=== PATIENT | female | born 1955 | race Caucasian/White ===

== ENCOUNTER → 2016-07-03 | Outpatient (CLI) | payer OTHER ==
[~2016-07-03] VITALS: Ht 162.6 cm; Wt 103.7 kg
[~2016-07-03] MED LIST: ADVIN25/60 INH; ALBU1AER9 INH; AMLO5TAB2 PO; CETI10TA84 PO; CHOL100010 PO; HYDR25TA4 PO; LEVO112T4 PO; LISI-725 PO; NAPR-1169 PO; PRLSR20 PO; ROPI3TAB2 PO; SERT1TAB68 PO
[2016-07-03 15:17] VITALS: BP 129/66; PULSE 93; Ht 162.6 cm; Wt 103.7 kg
== END | disposition home or self-care (01) ==
LOC: C.NEUR 15:06
PROVIDERS: ATTEND Internal Medicine Pulmonary Disease
DX: G47.33 Obstructive sleep apnea (adult) (pediatric) (principal); J45.909 Unspecified asthma, uncomplicated

== ENCOUNTER → 2017-06-17 | Outpatient (CLI) | payer OTHER ==
--- NOTE | 2017-06-18 14:35 | MAMMOGRAPHY REPORT ---
BILATERAL DIGITAL SCREENING MAMMOGRAM TOMOSYNTHESIS WITH CAD: 06/17/2017 CLINICAL HISTORY: Routine screening. TECHNIQUE: Breast tomosynthesis in addition to standard 2D mammography was performed. Additional ti led 2-D CC and MLO views were obtained to include all breast tissue. Current study was also evaluate d with a Computer Aided Detection (CAD) system. COMPARISON: Comparison is made to exams dated: 06/16/2016 mammogram, 06/13/2015 mammogram, 4 mammogram, 06/10/2013 mammogram, 06/09/2012 mammogram, and 03/27/2011 mammogram - [facility]. BREAST COMPOSITION: The tissue of both breasts is heterogeneously dense, which may obscure small mas ses. FINDINGS: There is a stable intramammary lymph node in the right upper outer quadrant. No suspicious mass, architectural distortion or cluster of microcalcifications is seen. IMPRESSION: ACR BI-RADS CATEGORY 1: NEGATIVE There is no mammographic evidence of malignancy. A 1 year screening mammogram is recommended. The pa tient will receive written notification of the results. Approximately 10% of breast cancers are not detected with mammography. A negative mammographic report should not delay biopsy if a clinically suggestive mass is present. Ashley Cadena M.D. ay/:06/17/2017 15:06:54 Call Center Nurse: Giles TOURE(R)(M), [facility] letter sent: Normal 1/2 BI-RADS Code: ACR BI-RADS Category 1: Negative
== END | disposition home or self-care (01) ==
LOC: C.MAMM 13:49
PROVIDERS: ATTEND Obstetrics & Gynecology
DX: Z12.31 Encounter for screening mammogram for malignant neoplasm of breast (principal)

== ENCOUNTER → 2017-07-21 | Outpatient (CLI) | payer BC, OTHER ==
--- NOTE | 2017-07-21 13:21 | DIAGNOSTIC IMAGING REPORT ---
RIGHT FIFTH FINGER 3 VIEWS CLINICAL HISTORY: Right fifth finger pain. Injured several weeks ago. FINDINGS: 3 views of the right fifth finger are correlated with radiograph of the right hand dated 01/19/2015. The skeletal structures are osteopenic. There is a punctate ossific density seen posterior to the head of the second middle phalanx. This may represent a tiny avulsion injury. No additional findings are concerning for acute fracture. The fifth metacarpophalangeal and interphalangeal joints appear preserved. Mild soft tissue swelling is suggested in the fifth finger. IMPRESSION: 1. A punctate ossific density is seen in the soft tissues posterior to the head of the second middle phalanx. A tiny avulsion injury is not excluded. 2. No additional findings are concerning for acute fracture in the right fifth finger. Electronically signed by: Han Gregory M.D. 07/21/2017 1:19 PM Dictated Date/Time: 07/21/2017 1:17 PM
== END | disposition home or self-care (01) ==
LOC: C.RDSM 13:08
PROVIDERS: ATTEND Internal Medicine
DX: M79.646 Pain in unspecified finger(s) (principal)

== ENCOUNTER → 2017-09-08 | Outpatient (CLI) | payer BC ==
[~2017-09-08] MED LIST changes: +GADAVIST IV PRN
--- NOTE | 2017-09-08 16:47 | DIAGNOSTIC IMAGING REPORT ---
LEFT ANKLE MRI WITH AND WITHOUT INTRAVENOUS CONTRAST HISTORY: LT ANKLE PAIN TECHNIQUE: Multiplanar multisequence MRI of the left ankle was performed both before and after the intravenous administration of contrast COMPARISON STUDY: Left ankle 01/04/2010. FINDINGS: Skin marker along the posterior lateral aspect of the ankle. Deep to the skin marker there is mild subcutaneous edema. No soft tissue masses. No acute fracture or dislocation within the left ankle. Mild cartilage space narrowing at the tibiotalar and subtalar joints. There is a large plantar heel spur. Mild edema within and surrounding the heel spur with mild thickening and edema in the proximal plantar fascia. This is consistent with a plantar fasciitis. The Achilles tendon, flexor tendons, and extensor tendons are intact. Trace fluid surrounding the peroneal tendons consistent with a mild tenosynovitis. Well-corticated ossific density at the distal tip of the fibula which measure 7 mm. This is consistent with an old avulsion injury. 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 The medial stabilizing ligaments are intact. There is a primarily fat-containing 3.3 cm lesion within the anterior calcaneus. This contains a small focus of cystic change and mild edema. No surrounding edema or abnormal periosteal reaction. Therefore, this is consistent with an intraosseous lipoma. IMPRESSION: 1. Plantar fasciitis. 2. Mild tenosynovitis of the peroneal tendons. 3. A 3.3 cm primarily fat-containing lesion within the anterior calcaneus. This contains a small focus of cystic change and mild edema. However, this has an overall benign appearance and is consistent with an intraosseous lipoma. This is also stable compared to a 2009 examination. Electronically signed by: Sami Latham M.D. 09/08/2017 4:46 PM Dictated Date/Time: 09/08/2017 4:34 PM
== END | disposition home or self-care (01) ==
LOC: C.MRI 13:51
PROVIDERS: ATTEND Podiatrist Foot & Ankle Surgery
DX: M76.892 Other specified enthesopathies of left lower limb, excluding foot (principal)

== ENCOUNTER → 2017-09-29 | Outpatient (CLI) | payer BC ==
[~2017-09-29] MED LIST changes: -GADAVIST IV PRN
--- NOTE | 2017-09-29 18:22 | DIAGNOSTIC IMAGING REPORT ---
CHEST 2 VIEWS ROUTINE HISTORY: PRE OP COMPARISON: None. FINDINGS: A few small linear densities at the left lung base which favor scarring or atelectasis. The lungs are otherwise clear. The heart is normal in size. No pleural effusions. No pneumothorax. IMPRESSION: No acute process. Electronically signed by: Sami Latham M.D. 09/29/2017 6:21 PM Dictated Date/Time: 09/29/2017 6:19 PM
== END | disposition home or self-care (01) ==
LOC: C.RAD 17:15
PROVIDERS: ATTEND Podiatrist Foot & Ankle Surgery
DX: Z01.811 Encounter for preprocedural respiratory examination (principal)

== ENCOUNTER → 2017-11-10 | Day surgery (SDC) | payer BC ==
[2017-10-23 13:32] VITALS: BMI 38.0
--- NOTE | 2017-11-09 15:06 | HISTORY & PHYSICAL EXAMINATION ---
DATE OF ADMISSION: PRE-OP HISTORY AND PHYSICAL HISTORY OF PRESENT ILLNESS: A 61-year-old female presents today for preoperative evaluation of ankle pain, requesting surgical intervention. Condition is located on the anterior aspect of right ankle and over the left mid foot. She describes pain as intermittent. She has a lot of throbbing pain. Severity of the condition is graded as an 8 on a 10 point scale on the left, began 2 years ago. Patient denies any associated signs or risks. She indicates there are no modifying factors. Patient has past treatments consisting of injections, MRI, radiographs, insoles and brace with minimal relief. Due to the nature and severity of the discomfort, she is requesting surgical intervention. PAST SURGICAL HISTORY: Hysterectomy, tonsillectomy, venous stripping. PAST MEDICAL HISTORY: Arthritis, asthma, depression, anxiety disorder. MEDICATIONS: Zoloft, ReQuip, ____, hydrochlorothiazide, levothyroxine, aspirin, ____, lisinopril, thyroid, Clinoril. ALLERGIES: THE PATIENT ADMITS TO ALLERGIES TO AMOXICILLIN, PENICILLINS AND CODEINE. FAMILY HISTORY: Cancer and diabetes. SOCIAL HISTORY: Patient admits to alcohol use, drinking described as social. REVIEW OF SYSTEMS: Unremarkable except chief complaint. PHYSICAL EXAMINATION: CONSTITUTIONAL: The patient appears well developed and nourished with good attention to body grooming and habitus. HEAD AND FACE: Head is normocephalic, atraumatic. No gross head, face or neck masses. EYES: Conjunctival and pupillary reaction to light and accommodation are normal. EARS, NOSE, MOUTH AND THROAT: Unremarkable. NECK: Supple. Trachea is midline without any adenopathy or crepitance palpable. CARDIOVASCULAR: Normal S1, S2, without murmur, gallops, rubs or clicks noted. Cardiovascular exam is normal. RESPIRATORY: Chest is symmetric. No scars are visible. No port or pacemaker. LUNGS: Clear to auscultation bilaterally and equal. GASTROINTESTINAL: Abdominal organs, bladder and kidneys show no abnormalities, masses, tenderness or rigidity. LYMPHATIC: No popliteal, inguinal or supraclavicular lymphadenopathy noted. EXTREMITIES: Lower extremity exam DP palpable, PT palpable. DERMATOLOGY: No skin rash, subcutaneous nodules, lesions or ulcers observed. NEUROLOGICAL: Touch, pin, vibratory and proprioception are normal. Deep tendon reflexes normal. MUSCULOSKELETAL: Muscle tone is normal. Muscle strength 5/5 all groups tested. Anterior aspect of the left ankle shows pain ____ exam. Dorsum aspect of the mid foot shows evidence of capsulitis, swelling and pain. Exostosis is noted to the left mid foot. IMPRESSION: Ankle joint capsulitis left, degenerative joint disease, left ankle. Mid tarsal joint capsulitis left, difficulty walking. Pain, lower extremity and leg. 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 PLAN: I discussed the most common mechanical etiology discomfort. Conservative treatment consisted of rest, ice, analgesics, nonsteroidal anti-inflammatory drugs, physical therapy, steroid injections and orthotics. Due to the nature and severity of the discomfort, she is requesting surgical intervention. SURGICAL PROCEDURE TO BE PERFORMED: 1. Surgical arthroscopy with extensive debridement, possible open arthrotomy of the left ankle. This will be performed under general anesthesia as an outpatient hospital. Procedure, risks and complications were fully reviewed with the patient. Consent form, foot diagram illustration reviewed in all their entirety. All the patient's questions were answered, complications discussed in detail with the patient including pain, infection, swelling that may not be excessive, pins and needles feeling, numbness, metatarsalgia, excessive bleeding, delay or nonhealing of bone, delay or nonhealing of skin, enlarged scar, failure of the procedure, reoccurrence or worsening condition which may not require further surgery, adverse reaction to anesthesia, allergic reaction to suture or other implant material. The patient will be required to be in a surgery shoe for minimum of 1-2 weeks, not return to sneaker for 2-4 weeks depending on the postop edema. The patient is aware that this is an elective type of procedure and I recommend a second opinion. The patient stated they understood. Consent form was signed with a copy of the foot diagram issued to the patient. Verbal and written postop instructions were given. The patient will be started on CPM machine if covered by insurance. If not, she will perform range of motion immediately postoperatively. She will return to the office for postop check or sooner if necessary. Instructed to keep dressing clean, dry, intact until seen at the office. At the time of the preop appointment, prescriptions for erythromycin and Percocet were dispensed.
[~2017-11-10] VITALS: Ht 162.6 cm; Wt 102.3 kg
[~2017-11-10] MED LIST changes: -AMLO5TAB2 PO; +ASPI81TA28 PO; +ATROPINE SULFATE 0.1 MG/ML 5ML SYR IV PRN; +BLAC540C3 PO; +BUPIVACAINE 0.5 % 5 MG/1 ML MPF 30ML VIAL ONE; -CETI10TA84 PO; -CHOL100010 PO; +DEXAMETHASONE SOD INJ 4 MG/ML VIAL ONE; +EpHEDrine SULFATE INJ 50 MG/ML AMP IV PRN; +FENTANYL CITRATE INJ 50 MCG/1 ML 2 ML VIAL ONE; +HYDROmorphone INJ 0.5 MG/0.5 ML SYR IV PRN; +LACTATED RINGER'S 1000ML 1,000 ML IV SCH; +LIDOCAINE HCL 2% 2 ML VIAL (20MG/ML) ONE; +LIDOCAINE/EPINEPHRINE 1% 20 ML VIAL ONE; +MIDAZOLAM HCL 1 MG/ML 2ML VIAL ONE; -NAPR-1169 PO; +ONDANSETRON INJ 2 MG/ML 2 ML VIAL IV PRN; +ONDANSETRON INJ 2 MG/ML 2 ML VIAL ONE; +PHENYLEPHRINE 100MCG/ML 5ML SYR IV PRN; +PHENYLEPHRINE 100MCG/ML 5ML SYR ONE; +PROPOFOL IV EMULSION 10 MG/ML 20 ML VIAL ONE; +ROPIVACAINE 0.5% 5 MG/ML 30 ML VIAL ONE; +SODIUM CHLORIDE 0.9% 1000ML 1,000 ML IV SCH; +SULI200T4 PO; +VANCOMYCIN 1GM/270ML NSS IV SCH
[2017-11-10 05:30] VITALS: BP 158/86; PULSE 95; TEMP 36.8; O2SAT 95; Ht 162.6 cm; Wt 102.3 kg
[2017-11-10 05:36] LABS: HEMATOCRIT 38.3 % (37-47); HEMOGLOBIN 13.6 g/dL (12.0-16.0); MEAN CELL VOLUME 87.8 fL (80-100); MEAN CORPUSCULAR HEMOGLOBIN 31.2 pg (25-34); MEAN PLATELET VOLUME 8.2 fL (7.4-10.4); PLATELET COUNT 258 K/uL (130-400); RED CELL DISTRIBUTION WIDTH CV 13.1 % (11.5-14.5); RED CELL DISTRIBUTION WIDTH SD 42.5 fL (36.4-46.3); WHITE BLOOD COUNT 5.18 K/uL (4.8-10.8)
[2017-11-10 05:39] LABS: MEAN CORPUSCULAR HGB CONC 35.5 g/dl (32-36)
--- NOTE | 2017-11-10 07:00 | History & Physical Bridge Note ---
H&P Re-Evaluation Bridge Note: I have examined the patient, reviewed the History & Physical and in the interval since the performance of the History & Physical I have noted the following changes of clinical significance: No changes noted
--- NOTE | 2017-11-10 07:03 | Discharge Instructions ---
Discharge Instructions Date of Service November 10, 2017. Admission Reason for Admission: Left Ankle Joint Capsulitis, Degenerative Joint Di Discharge Discharge Diagnosis / Problem: same as diagnosis Discharge Goals Goal(s): Decrease discomfort Activity Recommendations Activity Limitations: as noted below Medications: * Resume previous medications unless instructed by your surgeon. * Take your medications as prescribed. Call our office ([phone]) at any time, if you experience severe pain that does not subside shortly after taking your pain medication. Activity: * You may walk on your operated foot/ankle using the surgical shoe or cast/splint. Do not put any weight on your operated foot/ankle without wearing the surgical shoe or cast sandal.. Special Care: * Keep your bandage clean and dry. Do not remove your bandage unless otherwise instructed. A small amount of blood may appear on the bandage over the surgical site. Call our office ([phone]) if you bandage becomes blood-soaked or wet. * Elevate your operated foot/ankle on pillows, above the level of your heart, as often as possible during the first 2-3 days following surgery. Keep your knee flexed slightly with a pillow under your knee when you elevate your foot/ankle. * Apply a ice bag to your foot/ankle over the operative site for 20-30 minutes out of each hour while you are awake. Do not allow the ice bag to directly contact bare skin. * Avoid bumping or handling any pins visible in your toes. If any pin feels or appears loose, call the office ([phone]). * Take your oral temperature in the morning and at bedtime. Call our office ([phone]) if your temperature rises above 101 degrees Fahrenheit. Call your surgeon's office at ([phone]) for any problems or concerns such as excessive bleeding and/or pain unrelieved by your prescribed pain medications. If you have any questions, please do not hesitate to ask them. Avoid all tobacco products. If you need help to stop smoking, call [place]'s FREE QUITLINE at . This is a free call. Follow-up: Follow-up with Dr. Fu . Current Hospital Diet Patient's current hospital diet: Discharge Diet Recommended Diet: Regular Diet Pending Studies Studies pending at discharge: no Medical Emergencies . Who to Call and When: Medical Emergencies: If at any time you feel your situation is an emergency, please call 911 immediately. . Non-Emergent Contact Non-Emergency issues call your: Primary Care Provider . "Provider Documentation" section prepared by Diane Ayers. .
--- NOTE | 2017-11-10 09:02 | [facility] Post Operative Brief Note ---
Immediate Operative Summary Operative Date November 10, 2017. Pre-Operative Diagnosis Left ankle joint capsulitis, degenerative joint disease left ankle. Left mid tarsal joint capsulitis, difficulty walking Post-Operative Diagnosis Left ankle joint capsulitis, degenerative joint disease left ankle. Left mid tarsal joint capsulitis, difficulty walking Procedure(s) Performed Surgical arthroscopy left Ankle , Extensive Dedridement and Talar Lesion Repair. Surgeon Ramon RussellPLuz. Medical Technologist Microbiology Surgeon(s) None Estimated Blood Loss 0ml Findings Consistent with Post-Op Diagnosis Specimens None per surgeon Anesthesia Type General
--- NOTE | 2017-11-10 09:59 | OPERATIVE REPORT ---
DATE OF OPERATION: 11/10/2017 SURGEON: Diane Fu DPM PREOPERATIVE DIAGNOSES: 1. Distal fibular old avulsion injury per MRI. 2. Degenerative joint disease of left ankle. 3. Adhesive and traumatic capsulitis of the left ankle. POSTOPERATIVE DIAGNOSES: 1. Distal fibular old avulsion injury per MRI. 2. Degenerative joint disease of left ankle. 3. 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 PROCEDURES: Surgical arthroscopy with extensive debridement and repair of osteochondritis dissecans and osteochondral defect of the talus. ANESTHESIA: General. HEMOSTASIS: Pneumatic thigh tourniquet in place, however, not inflated. ESTIMATED BLOOD LOSS: Minimal. MATERIALS: 3-0 Vicryl, 4-0 nylon. INJECTABLES: Preop intraarticular of 1% lidocaine with 1:1000 epinephrine, a total of 20 mL, and postoperative block of 0.5% Marcaine plain, total of 30 mL, and intraarticular postoperative 2 mL of dexamethasone sodium phosphate 4 mg per mL. FINDINGS: A large amount of hypertrophic synovium, osteochondritis dissecans with talar dome lesion secondary to tibial impingement anteriorly. COMPLICATIONS: None. The patient tolerated the procedure and anesthesia well without complications, transferred to recovery room with vital signs stable and neurovascular status intact. DESCRIPTION OF PROCEDURE: The patient was brought to the OR and placed on the OR table in supine position. Upon completion of general anesthesia, a well-padded thigh tourniquet was applied to the left lower extremity. The extremity was scrubbed, prepped and draped in the usual aseptic fashion. Attention was directed to the medial aspect of the left ankle joint. The position of the extremity was placed in a knee osorio and also the noninvasive Betsy distractor was used. Prior to the incision, the joint was inflated with 20 mL of 1% lidocaine with 1:1000 epinephrine. Just medial to the tibias anterior tendon, inferior to the joint line, a small stab incision was made after carefully drawn out. Also, a lateral stab incision was made using a 15 blade just lateral to the extensor tendons and peroneus tertius just inferior to the joint line. The deep structures were using a small hemostat. Using a blunt trocar and cannula, the anterior medial and anterior lateral portals were created. The camera was placed in the lateral portal and a 3-0 Saber was placed in the medial portal. This was used to abrade a large amount of hypertrophic synovium over the lateral aspect of the joint. The cartilage surface was examined both inferior and superior aspects of the joint. There was a cartilage defect noted to anterior talus with delamination of the cartilage surface. This appeared to be impinging where the tibia was impinging on the anterior aspect of the talus. There did not appear to be excessive lip on this area intraoperatively and was right at the full and extension on the talus. This was brought back to stable margins. There was no subchondral bone, but rather delamination and thinning of the cartilage over this area. The tibial surface was intact. There did appear to be no lesion. Minimal chondromalacia was noted. At this time, the camera and the shaver were switched. The camera was placed in the lateral portal and the shaver was placed in the medial portal. Adhesive capsulitis and hypertrophic synovium were also abraded with a chisel to due to a large amount of hypertrophic synovium. The 3-0 Saber shaver was used for the remaining portion of hypertrophic synovium. The wound was copiously lavaged and the camera and the shaver were removed. The skin margins were reapproximated in a box stitch-type manner using 3-0 Vicryl superficial. The skin was closed in a retention suture-type fashion using 3-0 nylon. An ankle block of 20 mL 0.5% Marcaine plain was placed around the ankle and an intraarticular injection of 2 mL of dexamethasone sodium phosphate was instilled within the joint. A dry sterile compressive dressing consisting of Adaptic, Betadine, Webril, and ROSALVA were applied. It should be noted that the well-padded tourniquet was in place, however, not inflated throughout the procedure. The patient was transported to the recovery room with vital signs stable and neurovascular status intact. Long-term prognosis is guarded. The lesion was not down to the subchondral bone, however, there was significant delamination where the tibia was hitting the anterior aspect of the joint. I attest to the content of the Intraoperative Record and any orders documented therein. Any exception s are noted below.
[2017-11-10 10:02] VITALS: BP 146/76; PULSE 89; TEMP 36.8; O2SAT 92
--- NOTE | 2017-11-10 10:03 | Anesthesiology Progress Note ---
Anesthesia Post Op Note Date & Time November 10, 2017 at 10:02 Vital Signs Pain Intensity: 0 Vital Signs Past 12 Hours Date Time Temp Pulse Resp B/P (MAP) Pulse Ox O2 Delivery O2 Flow Rate FiO2 11/10/17 09:55 84 24 140/85 93 Room Air 11/10/17 09:45 36.6 88 17 135/81 92 Room Air 11/10/17 09:35 89 14 141/73 92 Room Air 11/10/17 09:25 90 18 141/85 90 Room Air 11/10/17 09:15 82 12 138/85 97 Oxymask 10 11/10/17 09:06 36.6 94 15 154/77 97 Oxymask 10 11/10/17 05:30 36.8 95 20 158/86 (110) 95 Room Air Notes Mental Status: alert / awake / arousable, participated in evaluation Pt Amnestic to Procedure: Yes Nausea / Vomiting: adequately controlled Pain: adequately controlled Airway Patency, RR, SpO2: stable & adequate BP & HR: stable & adequate Hydration State: stable & adequate Anesthetic Complications: no major complications apparent
[2017-11-10 10:32] VITALS: BP 173/76; PULSE 80; TEMP 36.7; O2SAT 93
== END | disposition home or self-care (01) ==
LOC: C.ACU 04:58
PROVIDERS: ATTEND Podiatrist Foot & Ankle Surgery
DX: M93.272 Osteochondritis dissecans, left ankle and joints of left foot (principal); M19.072 Primary osteoarthritis, left ankle and foot; M77.9 Enthesopathy, unspecified; J44.9 Chronic obstructive pulmonary disease, unspecified; K21.9 Gastro-esophageal reflux disease without esophagitis; I10 Essential (primary) hypertension; E03.9 Hypothyroidism, unspecified; F32.9 Major depressive disorder, single episode, unspecified; E66.9 Obesity, unspecified; Z68.38 Body mass index [BMI] 38.0-38.9, adult; Z88.0 Allergy status to penicillin; Z88.5 Allergy status to narcotic agent; Z90.710 Acquired absence of both cervix and uterus; Z83.3 Family history of diabetes mellitus

== ENCOUNTER 2024-05-03 07:55 | Observation (INO) ==
--- NOTE | 2024-03-21 12:59 | PAT Medication Instructions ---
Medication Instructions Date of Service March 21, 2024 Home Medications aspirin 81 mg tablet,delayed release (Adult Low Dose Aspirin) 81 mg PO QAM cetirizine 10 mg tablet (Zyrtec) 10 mg PO DAILY PRN levothyroxine 112 mcg capsule 112 mcg PO QAM lisinopril 10 mg tablet 20 mg PO QAM multivitamin (Multiple Vitamins tablet) 1 tab PO QAM omeprazole 20 mg capsule,delayed release 20 mg PO QAM sertraline 100 mg tablet (Zoloft) 100 mg PO QAM hydrochlorothiazide 25 mg tablet 25 mg PO QAM ASK your prescriber and surgeon aspirin 81 mg tablet,delayed release (Adult Low Dose Aspirin) 81 mg PO QAM DO NOT take the morning of surgery cetirizine 10 mg tablet (Zyrtec) 10 mg PO DAILY PRN lisinopril 10 mg tablet 20 mg PO QAM multivitamin (Multiple Vitamins tablet) 1 tab PO QAM hydrochlorothiazide 25 mg tablet 25 mg PO QAM Take morning of surgery With a small sip of water, OTHERWISE NOTHING TO EAT OR DRINK AFTER MIDNIGHT: levothyroxine 112 mcg capsule 112 mcg PO QAM omeprazole 20 mg capsule,delayed release 20 mg PO QAM sertraline 100 mg tablet (Zoloft) 100 mg PO QAM Other Notes If you have any questions please call us at [phone] or [phone] or [phone] or [phone]
--- NOTE | 2024-03-28 12:06 | Anesthesiology Consultation ---
Date of Service March 28, 2024 Assessment & Plan (1) Encounter for pre-operative examination: - patient unable to void at PAT office visit and plans to return to [facility] with completed UA specimen. - Outpatient joint assessment: Patient is currently scheduled for inpatient pathway. If re-evaluated and patient/surgeon requests outpatient pathway, patient is/is not acceptable candidate for outpatient joint program from anesthesia standpoint pending surgeon's office assessment of pt motivation/support/completion of same day joint program preop requirements. Chart Review Chart Review: Pending: Refer to Additional Notes / Consult section and Patient seen in Pre Admission Testing Teaching & Discussion Pre-Anesthesia Teaching/Discussion Notes: Instructed NPO after midnight before surgery, except medications with 15 cc of water. Medication instructions provided according to the [facility] guidelines. History Surgery Operation Date: 05/03/24 07:00 Proposed Procedures p Left Total Shoulder Arthroplasty, - Jeff Breana Miller MD s Versus Reverse - Jeff Breana Miller MD Height/Weight Height: 5 ft 3.5 in Weight: 111.6 kg Allergies Allergy/AdvReac Type Severity Reaction Status Date / Time amoxicillin Allergy Intermediate Rash Verified 04/15/23 11:04 Cephalosporins Allergy Unknown CEFZIL-"SIC Verified 04/15/23 11:04 K" Penicillins Allergy Unknown AMOX. Verified 04/15/23 11:04 HIVES codeine AdvReac Intermediate N/V Verified 04/15/23 11:04 DEHYDRATION Medications Home Medications Medication Instructions Recorded Confirmed Last Taken aspirin 81 mg tablet,delayed 81 mg PO QAM 07/06/19 03/18/24 11/07/21 release (Adult Low Dose Aspirin) cetirizine 10 mg tablet (Zyrtec) 10 mg PO DAILY PRN Allergy Symptoms 07/06/19 03/18/24 11/07/21 levothyroxine 112 mcg capsule 112 mcg PO QAM 07/06/19 03/18/24 11/08/21 lisinopril 10 mg tablet 20 mg PO QAM 07/06/19 03/18/24 11/08/21 multivitamin (Multiple Vitamins 1 tab PO QAM 07/06/19 03/18/24 11/07/21 tablet) omeprazole 20 mg capsule,delayed 20 mg PO QAM 07/06/19 03/18/24 11/07/21 release sertraline 100 mg tablet (Zoloft) 100 mg PO QAM 07/06/19 03/18/24 11/07/21 hydrochlorothiazide 25 mg tablet 25 mg PO QAM 10/28/21 03/18/24 11/07/21 Past Medical History Medical History (Updated 03/28/24 @ 12:22 by Promise Madden PA-C) Acid reflux controlled, stable per pt Depression History of anxiety History of COVID-19 07/05/21; headache, poor appetite. resolved History of gestational diabetes History of uterine leiomyoma History of venous thrombosis right leg mmjb-pjkiio-qqetjprulga-denies being advised to start anticoagulation Hypertension controlled, stable per pt Hypothyroidism Morbid obesity Osteoarthritis Sleep apnea CPAP-compliant Patient denies h/o stroke, seizures, heart attack, heart failure, DM, or blood transfusions. Exercise / Class Metabolic Activity II 4-5 Yardwork/Stairs/Walk up hill (denies chest discomfort or shortness of breath with one flight of stairs) Past Family History Family History Other Cancer No family history of adverse response to anesthesia No significant family history Denies family history of Breast cancer Past Surgical History Surgical History (Updated 03/28/24 @ 12:23 by Promise Madden PA-C) History of carpal tunnel release of both wrists History of colonoscopy History of ligation of vein bilat History of tonsillectomy and adenoidectomy History of total abdominal hysterectomy Past Anesthesia History No Hx of Anesthesia Complications and No Family Hx of Anesthesia Complications History of PONV No Hx of PONV and No Hx of Motion Sickness Social History Smoking Status: Never smoker Do You Dip or Chew Tobacco: No Hx Alcohol Use: Yes Alcohol type: wine alcohol intake frequency: holidays/special occasions only Hx Substance Use: No substance use type: does not use Review of Systems Patient denies chest pain, shortness of breath, dyspnea on exertion, fever, chills, cough, wheezing, or palpitations. Physical Exam Vital Signs Vitals BP 121/82 P 77 TEMP 98.2 SP02 97% on RA RESP 18 Physical Patient resting comfortably in chair in no acute distress, alert and oriented, responding appropriately throughout visit Full cervical extension range of motion without pain TMD 3.5 finger breadths Mallampati Score 3 Dentition: intact, denies chipped or loose teeth, caps/crowns, implants or bridges Lungs: normal respiratory effort. Good air movement, clear throughout to auscultation, no adventitious breath sounds Cardiac: regular rate and rhythm, no murmurs noted Carotid arteries: negative bruit bilat Lab Results Anesthesia Preop Results Results Anesthesia Widget: WBC 4.96 K/ul (4.8-10.8) 03/28/24 Hgb 12.6 g/dl (12.0-16.0) 03/28/24 Hct 37.5 % (37.0-47.0) 03/28/24 Plt 236 K/uL (130-400) 03/28/24 Na 135 mmol/L (136-145) L 03/28/24 K 3.3 mmol/L (3.5-5.1) L 03/28/24 Cl 98 mmol/L (98-107) 03/28/24 CO2 28 mmol/L (21-32) 03/28/24 BUN 11 mg/dl (6-23) 03/28/24 Creat 0.64 mg/dl (0.6-1.2) 03/28/24 Glucose Level 86 mg/dl (70-99(Fasting)) 03/28/24 PT 10.3 Seconds (9.0-12.0) 03/28/24 PTT 25 Seconds (21-31) 03/28/24 INR 0.9 (0.9-1.1) 03/28/24 Blood Type B Positive 03/28/24 Antibody Screen NEGATIVE 03/28/24 Testing Electrocardiogram Date: 03/28/24 NSR, rate 80 bpm Poor R wave progression, consider anterior MS vs lead placement vs LVH Chest X-Ray Date: 03/28/24 No acute chest disease.
[~2024-05-03 07:55] MED LIST changes: -ADVIN25/60 INH; -ALBU1AER9 INH; -ASPI81TA28 PO; -ATROPINE SULFATE 0.1 MG/ML 5ML SYR IV PRN; -BLAC540C3 PO; -BUPIVACAINE 0.5 % 5 MG/1 ML MPF 30ML VIAL ONE; +BUPIVACAINE 0.5 % 5 MG/1 ML PF 10ML VIAL ONE; -DEXAMETHASONE SOD INJ 4 MG/ML VIAL ONE; -EpHEDrine SULFATE INJ 50 MG/ML AMP IV PRN; -FENTANYL CITRATE INJ 50 MCG/1 ML 2 ML VIAL ONE; -HYDR25TA4 PO; -HYDROmorphone INJ 0.5 MG/0.5 ML SYR IV PRN; -LACTATED RINGER'S 1000ML 1,000 ML IV SCH; -LEVO112T4 PO; -LIDOCAINE HCL 2% 2 ML VIAL (20MG/ML) ONE; -LIDOCAINE/EPINEPHRINE 1% 20 ML VIAL ONE; -LISI-725 PO; -ONDANSETRON INJ 2 MG/ML 2 ML VIAL IV PRN; -PHENYLEPHRINE 100MCG/ML 5ML SYR IV PRN; -PHENYLEPHRINE 100MCG/ML 5ML SYR ONE; -PRLSR20 PO; +PROPOFOL IV EMULSION 10 MG/ML 20 ML VIAL IV ONE; -PROPOFOL IV EMULSION 10 MG/ML 20 ML VIAL ONE; +ROCURONIUM BROMIDE 10 MG/ML 5 ML VIAL IV ONE; -ROPI3TAB2 PO; -ROPIVACAINE 0.5% 5 MG/ML 30 ML VIAL ONE; -SERT1TAB68 PO; -SODIUM CHLORIDE 0.9% 1000ML 1,000 ML IV SCH; +SUGAMMADEX SODIUM 200 MG/2 ML VIAL IV ONE; -SULI200T4 PO; -VANCOMYCIN 1GM/270ML NSS IV SCH; +fentaNYL citrate PF 100 MCG/2 ML VIAL ONE
[2024-05-03] MEDS: ACETAMINOPHEN 500 MG TAB PO SCH (09:00)
[2024-05-03] MEDS: LR 15ML/HR IV SCH (09:01)
[2024-05-03] MEDS: LR 60ML/HR IV SCH (09:01)
[2024-05-03] MEDS: Scopolamine 1 MG TDSY TD SCH (09:01)
[2024-05-03] MEDS: CeleBREX 200 MG CAP PO SCH (09:01)
[2024-05-03] MEDS ORDERED: ONDANSETRON INJ 2 MG/ML 2 ML VIAL IV PRN ×2 (09:04→14:49)
[2024-05-03] MEDS ORDERED: ePHEDrine sulfate 50 MG/ML AMP IV PRN (09:04)
[2024-05-03] MEDS ORDERED: fentaNYL citrate PF 100 MCG/2 ML VIAL IV PRN (09:04)
[2024-05-03] MEDS ORDERED: HYDROmorphone INJ 1 MG/ML SYRINGE IV PRN (09:04)
[2024-05-03] MEDS ORDERED: ATROPINE SULFATE 0.1 MG/ML 10ML SYR IV PRN (09:04)
--- NOTE | 2024-05-03 09:25 | History & Physical Bridge Note ---
Date of Service May 03, 2024 History & Physical Bridge Note I have examined the patient, reviewed the History & Physical and in the interval since the performance of the History & Physical I have noted the following changes of clinical significance: no changes noted
[2024-05-03] MEDS: TRANEXAMIC ACID 1,000 MG **IV Pre-op IV SCH (09:49)
[2024-05-03] MEDS: ceFAZolin 2000MG 2,000 MG/15 ML SYR IV SCH ×2 (10:08→17:10)
[2024-05-03] MEDS: THROMBIN 5000 UNITS KIT ONE (11:24)
[2024-05-03] MEDS: GELATIN SPONGE SZ 100 ONE (11:24)
[2024-05-03] MEDS ORDERED: ePHEDrine sulfate 50 MG/ML AMP ONE (11:46)
[2024-05-03] MEDS: TRANEXAMIC ACID 1,000 MG **IV Intra-op IV SCH (12:44)
[2024-05-03] MEDS: LIDOCAINE 1%/EPINEPHRINE 1:100,000 50 ML VIAL ONE (13:01)
[2024-05-03] MEDS: BUPIVACAINE 0.5 % 5 MG/1 ML MPF 30ML VIAL ONE (13:01)
--- NOTE | 2024-05-03 13:07 | Post Operative Brief Note ---
Immediate Post Op Note Date of Surgery May 03, 2024 Pre & Post Diagnosis Operation Date: 05/03/24 10:00 Pre-Op Diagnosis: Left Shoulder Osteoarthritis Post-Op Diagnosis: Left Shoulder Osteoarthritis I identified the patient and participated in the time-out.: Yes Procedure Operation Date: 05/03/24 10:00 Actual Procedures p Left Total Shoulder Arthroplasty(Left) - Jeff Miller MD Surgeon Jeff Miller MD Grove Superintendent Reece Song PA-C (No fellow avail) Estimated Blood Loss 100 Findings Consistent with Post-Op Diagnosis Fluids 1000 cc Specimens left shoulder contents Anesthesia Type General Regional Complications none
--- NOTE | 2024-05-03 13:11 | Operative Report ---
Post Operative Report Pre & Post Diagnosis Operation Date: 05/03/24 10:00 Pre-Op Diagnosis: Left Shoulder Osteoarthritis Post-Op Diagnosis: Left Shoulder Osteoarthritis I identified the patient and participated in the time-out.: Yes Procedure Operation Date: 05/03/24 10:00 Actual Procedures p Left Total Shoulder Arthroplasty(Left) - Jeff Miller MD Surgeon Jeff Miller MD Board Liner Operator Reece Song PA-C (No fellow avail) Estimated Blood Loss 100 Findings See Below Severe OA left shoulder with large Humeral Head osteophyte, flattening of the head with grade IV changes. Rotator cuff was intact. Pre-op ROM: FF 145 deg, Abd 135 deg, ER 10 deg, IR 25 deg Post-op ROM: FF 165 deg, Abd 160 deg, ER 0 deg, IR 75 deg Fluids 1000 cc Specimens left shoulder contents Anesthesia Type General Regional Complications none Indications Patient is a 68-year-old female who left shoulder OA and has pain and decreased function. I recommended the patient undergo a left total shoulder arthroplasty vs reverse. The patient understands the risks of the operation including bleeding, infection, re-operation, damage to nerves and arteries, continued shoulder pain, shoulder stiffness, infection, and/or loosening of the components requiring revision surgery. The patient also understands the risks of heart attack, stroke, pulmonary embolus, and . The patient wished to proceed and the consent form was signed. Description of Procedure IMPLANTS: 1) Univers VaultLock Glenoid, Small (Arthrex) 2) Eclipse Trunion 43, Shoulder Implant 3) Eclipse Cage Screw, Medium 4) Eclipse Humeral Head 43/18, Shoulder implant 5) 2.6mm FiberTak with Labral tape x 3 (Arthrex) 6) 3.9 mm Biocomposite SwiveLock x 2 M LYNN Song is assisting with positioning, retracting, and closure due to fellow not available. PROCEDURE: The patient was taken to the Operating Room and placed in the beach-chair position after administration of an interscalene block and general anesthesia. 2 g of intravenous Ancef were administered. The left shoulder was then prepped and draped in the standard sterile fashion. Sequential compression devices were placed on the legs. The multidisciplinary time-out identified the patient and the left shoulder as the correct shoulder. First, the deltopectoral incision was anesthetized with 15 cc of the joint cocktail. Sharp dissection was carried down to the deltopectoral interval. The cephalic vein was identified and protected medially. Blunt dissection was performed to separate the deltoid from the rotator cuff. The clavipectoral fascia was then incised and a self-retaining shoulder retractor was placed beneath the conjoined tendon and deltoid muscle, exposing the subscapularis tendon. The biceps tendon was identified in its groove and had degeneration and fluid. The biceps tendon was unroofed from its groove, and the rotator interval was split to the base of the coracoid. The Pectoralis Major tendon was released approximately 1 cm. The biceps and Pec were tagged with a 0 Vicryl. The biceps was released from the glenoid rim and near the pec. The 3 sisters were cauterized and the Subscapularis tendon was peeled off the humerus, exposing the humeral head as the arm was externally rotated. Traction suture was placed in the Subscapularis with 0 Vicryl. Next, the humeral head was dislocated with the arm adducted, extended, and externally rotated; using a 90 degree Geni protecting the Supraspinatus and the deltoid to displace the humeral head anterior. A capsulotomy was carried down all the way around to the posterior aspect of the humeral head, taking care to stay on bone. We exposed the humeral osteophytes anterior, inferiorly. These osteophytes were removed with a rongeur to identify the medial calcar on the humeral neck. Next, using the Fixed angle cutting guide was placed and held with a guide pin to allow rotation so that the humeral osteotomy was performed in 30 degrees of retroversion using the guide that was pinned in place.The 43 Trunnion fit best and the pins were impacted to hold the guide in place. The material handler 2nd shift was used in the standard fashion to prepare for the Eclipse screw. A centralizer was placed and using the guide pin the length of the screw was measured. A protective cap was placed over top of the osteotomy site. The glenoid was exposed with a Batman retractor anteriorly, 90 degree Geni posterior superiorly, and Royal posteriorly displacing the humeral head posterior and inferior. Using the VIP aiming guide based on preoperative planning a guide pin was placed centrally. Then the glenoid was reamed to bleeding surface. The central docking pilot hole was created with the drill. The guide for the Univers VaultLock was placed in the standard fashion centered using the central docking pilot hole. Once it was seated in the proper position, the 6mm drill was used to create the superior hole and the drill was left in place to further stabilize the guide. The 3 inferior hole were placed using the 4.5mm drill. The guide was removed and the glenoid broach was used to complete the glenoid preparation. The Small trial fit well. Bone from the humeral head was placed around the central peg in the standard fashion. [place] G cement was placed in the superior and inferior holes. The glenoid was placed in the standard fashion. After the cement had cured the glenoid was well secured. Our attention returned to the humeral head and the centralizer was placed followed by the Trunnion which was impacted into place in the standard fashion. The central screw was placed securing the Trunnion in place. Trial heads were placed and the 43/18 had excellent stability and 1+ translation anteriorly and posteriorly with good bounce back to the glenoid. Using the guide to avoid the Eclipse screw, 2 FiberTak anchors were placed for the medial row Subscapularis repair. The definitive humeral head was then impacted into place on the trunnion. Again, there was excellent stability and ROM forward flexion 165 degrees and Abduction 160 degrees. The Labral Tapes from the 2 anchors and FiberWire were passed through the Subscapularis tendon, where a total of 3 Labral Tapes would later be placed in the lateral row. The FiberWire sutures from each anchor that were also passed through the Subscapularis tendon were tied together to complete the medial row. The Lateral row anchors were drilled along the bicipital groove and the 3 Labral Tapes, I from each anchor were placed in the lateral row anchor in the standard fashion. The lasti Labral Tape suture not used in the lateral row was tied to 1 of the Labral Tape suture previously passed into the lateral row anchor. The rotator interval, superior aspect of the subscapularis tendon and anterior aspect of the Supraspinatus, was then closed with #1 Vicryl. The humeral head was no longer visible. The biceps was tenodesed to the pectoralis major tendon with #1 Vicryl. The pulsatile lavage was used to copiously irrigate the wound throughout the case. The deltopectoral interval was re-approximated with #1- Vicryl, the subcutaneous tissue was closed with 3-0 Vicryl, and the skin was closed with ZipeLine and shield. The wounds were dressed with Silverlon. The sponge and needle count were correct. The patient was then transferred to the PACU in stable condition after application of an abduction sling. POST-OP INSTRUCTIONS: The patient will be admitted for observation. Remain in the sling with abduction pillow for 4 weeks. Will work with PT/OT. Pain control with Tylenol, NSAIDs, and breakthrough narcotics. I attest to the content of the Intraoperative Record and any orders documented therein. Any exceptions are noted below.
--- NOTE | 2024-05-03 13:32 | Operative Report ---
Post Operative Report Pre & Post Diagnosis Operation Date: 05/03/24 10:00 Pre-Op Diagnosis: Left Shoulder Osteoarthritis Post-Op Diagnosis: Left Shoulder Osteoarthritis I identified the patient and participated in the time-out.: Yes Procedure Operation Date: 05/03/24 10:00 Actual Procedures p Left Total Shoulder Arthroplasty(Left) - Jeff Breana Miller MD Surgeon Arlene Song PA-C Outsole Cutter Machine Reece Song PA-C (No fellow avail) Estimated Blood Loss 100 Findings Consistent with Post-Op Diagnosis Specimens left shoulder bone Description of Procedure Pt was taken to operating room and properly positioned for procedure. Refer to anesthesia's note for anesthesia used. Pt was given pre-op antibiotics. Prepped and draped in sterile fashion. I was present during the entire case and assisted with positioning, instrumentation, closure and dressings. Please see surgeon's op report for further detail. Pt was awake and transferred to PACU in stable condition I attest to the content of the Intraoperative Record and any orders documented therein. Any exceptions are noted below.
--- NOTE | 2024-05-03 13:39 | Anesthesiology Progress Note ---
Date of Service May 03, 2024 Anesthesia Post Procedure Vital Signs Vital Signs: Temp Pulse Resp BP Pulse Ox O2 Del Method 05/03/24 08:48 36.9 C 78 20 148/86 H 96 Room Air Pain Intensity Left Shoulder: Pain Intensity: 8 Transfer of Care Handoff Completed per policy Notes Mental Status: alert / awake / arousable Patient Amnestic to Procedure: Yes Nausea / Vomiting: adequately controlled Pain: adequately controlled Airway Patency, RR, SpO2: stable & adequate BP & HR: stable & adequate Hydration State: stable & adequate Neuraxial Anesthesia: was administered and sensory block is resolving (Sill in effect as expected, no discomfort ) Anesthetic Complications: no major complications apparent and Pt Satisfied with anesthetic care
--- OUTSIDE RECORDS SUMMARY | 2024-05-03 14:01 | External Medical Summary | Continuity of Care Document ---
Author Name Unknown Organization [address] [id number] Care Team Providers Care [employer] Name Role Phone Elena Oden Primary Care Physician [phone] Encounter [facility] [id number] Date(s): 04/19/24 - 04/19/[address] [address] [phone] Encounter Diagnosis Preop examination(Discharge Diagnosis) - 04/20/24 Shoulder arthritis(Discharge Diagnosis) - 04/20/24 Hypertension(Discharge Diagnosis) - 04/20/24 Discharge Disposition: Home or Self Care Attending Physician: MD Cecille, [place] Allergies, Adverse Reactions, Alerts Substance Criticality Severity Reaction Reaction Severity Status codeine severe nausea/codeine Active amoxicillin hives Active Cefzil nausea Active Assessment and Plan Extracted from: Title:Office Visit Note Author:MD Cecille, [facility] Date:04/19/24 1.Preop examination Patient has no history of ischemic heart disease, CHF, CVD, diabetes, EtOH/drug abuse, recent anticoagulant or antithrombotic use, or CKD. They report no history of undergoing a stress test, cardiac catheterization, or coronary revascularization. Patient is medically optimized to proceed with orthosurgical procedure as planned. Form completed, returned to patient, and faxed in office today. 2.Shoulder arthritis May take Tylenol as needed for pain 3.Hypertension Chronic. Stable,BP today is 136/80. Continue medications. Immunizations Given and Recorded Vaccine Date Status Refusal Reason pneumococcal 20-valent conjugate vaccine 1 07/10/23 Given influenza virus vaccine, inactivated 06/10/23 Jose Alberto rded influenza virus vaccine, inactivated 05/20/22 Give n influenza virus vaccine, inactivated 04/09/21 Give n influenza virus vaccine, inactivated 05/09/20 Give n influenza virus vaccine, inactivated 05/02/19 Give n influenza virus vaccine, inactivated 05/05/18 Give n influenza virus vaccine, inactivated 04/20/17 Give n influenza virus vaccine, inactivated 2 04/23/16 Re corded influenza virus vaccine, inactivated 06/21/15 Give n influenza virus vaccine, inactivated 04/27/14 Give n influenza virus vaccine, inactivated 04/28/13 Give n zoster vaccine, inactivated 09/05/22 Given zoster vaccine, inactivated 07/07/22 Given tetanus/diphtheria/pertuss, acel (Tdap) 10/01/15 G iven tetanus/diphtheria/pertuss, acel (Tdap) 06/06/05 R ecorded influenza virus vaccine, H1N1 04/29/11 Recorded measles/mumps/rubella virus vaccine 12/07/94 Recor ded 1Early/Late Reason: Early/Late Reason: Clinic schedule 2Result Comment: [05/29/2016] at [facility] Medications Advil 200 mg oral tablet Start: 06/13/20 8:12:00 AM EST, 2 tab, PO, q6h, PRN: as needed for arthritis Start Date: 06/13/20 Status: Ordered albuterol CFC free 90 mcg/inh MDI Start: 06/05/22 11:31:00 AM EST, 2 puff, inhaled, qid, Disp# 8 g, Refills: 5, PRN: as needed for wheezing, Pharmacy: [facility]/pharmacy #[id number] Start Date: 06/05/22 Stop Date: 12/02/22 Status: Ordered aspirin Start: 04/27/14 8:31:00 AM EDT, 81 mg =, PO, Daily Start Date: 04/27/14 Status: Ordered diclofenac 1% topical gel Start: 06/13/20 8:14:00 AM EST, 1 appl, topical, qid, Apply to L knee as needed 4 times daily for pain., PRN: pain Start Date: 06/13/20 Status: Ordered fluticasone CFC free 220 mcg/inh MDI Start: 06/05/22 11:31:00 AM EST, 2 puff, inhaled, bid, Disp# 1 each, Pharmacy: [facility]/pharmacy #[id number] Start Date: 06/05/22 Stop Date: 07/05/22 Status: Ordered hydroCHLOROthiazide 25 mg oral tablet Start: 08/04/23 1:05:00 PM EST, See Instructions, Disp# 90 tab, Refills: 3, TAKE 1 TABLET EVERY DAY, Pharmacy: [facility]/pharmacy #[id number] Start Date: 08/04/23 Status: Ordered inhaler spacer Start: 06/05/22 11:33:00 AM EST, See Instructions, Disp# 1 each, For asthma exacerbation to be used with albuterol., Pharmacy: [facility]/pharmacy #[id number] Start Date: 06/05/22 Status: Ordered levothyroxine 112 mcg (0.112 mg) oral tablet Start: 02/23/24 11:22:00 AM EDT, 1 tab, PO, Daily, Disp# 30 tab, Refills: 2, [id number] Start Date: 02/23/24 Status: Ordered lisinopril 20 mg oral tablet Start: 08/04/23 1:05:00 PM EST, See Instructions, Disp# 90 tab, Refills: 3, TAKE 1 TABLET BY MOUTH EVERY DAY, Pharmacy: [facility]/pharmacy #[id number] Start Date: 08/04/23 Status: Ordered Multiple Vitamins oral capsule Start: 04/17/10 6:09:54 PM EDT, 1 cap, PO, Daily, Refills: 0, No Dosage noted, current medication from another provider Start Date: 04/17/10 Status: Ordered omeprazole 40 mg oral delayed release capsule Start: 12/12/19 11:02:00 AM EDT, 1 cap, PO, Daily, Disp# 90 cap, Refills: 3, Pharmacy: [facility] [id number] [facility] Start Date: 12/12/19 Status: Ordered predniSONE 20 mg oral tablet Start: 01/06/24 12:10:00 PM EDT, 2 tab, PO, Daily, Disp# 10 tab, Pharmacy: [facility]/pharmacy #[id number] Start Date: 01/06/24 Stop Date: 01/11/24 Status: Ordered sertraline 100 mg oral tablet Start: 04/14/24 8:28:00 AM EDT, 1 tab, PO, qhs, Disp# 90 tab, Refills: 3, [facility]acy[id number] Start Date: 04/14/24 Status: Ordered triamcinolone 0.5% topical cream Start: 01/09/18 2:54:00 PM EDT, 1 appl, topical, tid, Disp# 15 g, Refills: 0, Pharmacy: [facility][id number] Start Date: 01/09/18 Status: Ordered ZyrTEC Start: 10/19/16 11:56:00 AM EDT, PRN: as needed for allergy symptoms Start Date: 10/19/16 Status: Ordered Mental Status 04/19/24 Barriers to Learning one year None evide nt Mandatory Health Literacy Documentation Yes Health Literacy Communication Barriers N ever Primary Language Panamanian Problem List Condition Confirmation Course Effective Dates Status H ealth Status Informant Anxiety disorder Confirmed Active Arthritis of left foot Confirmed Active ASTHMA Confirmed Active Benign essential HTN Confirmed Active CTS (carpal tunnel syndrome) Confirmed Active DEPRESSION Confirmed Active Dyspnea Confirmed Active Ganglion cyst Confirmed Active History of hysterectomy Confirmed Active Hallux valgus of left foot Confirmed Active Hammertoe of left foot Confirmed Active Right hand pain Confirmed Active Hot flash, menopausal Confirmed Active Hypothyroidism Confirmed Active Iliotibial band syndrome Confirmed Active Left knee pain Confirmed Active Cervicalgia Confirmed Active Bilateral hand numbness Confirmed Active Moderate obstructive sleep apnea Confirmed Active Osteopenia of left shoulder Confirmed Active Hand paresthesia Confirmed Active Pes anserinus bursitis of left knee Confirmed Active Restless leg syndrome Confirmed Active Left shoulder pain Confirmed Active 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 Active Apnea, sleep Confirmed Active Pes planus of left foot Confirmed Active Varicose veins of lower extremity Confirmed Active Weight disorder Confirmed Active Diagnosis Diagnosis Type Effective Dates Health Status Clinical Service Informant Shoulder arthritis Discharge Diagnosis 04/20/24 Non-Specified Hypertension Discharge Diagnosis 04/20/24 Non-Specified Preop examination Discharge Diagnosis 04/20/24 Non-Specified Procedures Procedure Date Related Diagnosis Body Site Status Colonoscopy 1, 2, 3 08/26/23 Compl eted Mammogram 4 10/16/22 Completed Mammogram - screening 5 10/14/21 C ompleted Shave biopsy 6 09/18/21 Completed Carpal tunnel release 08/30/21 Com pleted Mammogram - screening 7 10/10/20 C ompleted Chest X-ray 8 07/27/19 Completed Chest x-ray 9 07/06/[address] angiography of chest with contrast 10 07/06/19 Completed ECG 07/06/19 Completed Mammogram 11 08/18/18 Completed Chest X-ray 12 09/29/17 Completed Mammogram - screening 13, 14 06/17/17 Completed Full sleep study 15 03/22/16 Compl eted Emergency medical services 16 08/14/15 Completed Mammogram 17 06/13/15 Completed Mammogram - screening 18 06/12/14 Completed mammorgram - wnl 06/10/13 Complete d vericose vein injections 08/02/12 Completed venous doppler left 05/29/12 Compl eted COLONOSCOPY 19 06/29/07 Completed KANE --Ovaries left intact (D X: Fibroids) 07/30/03 Completed Varicose Vein Stripping 06/29/79 C ompleted 1- One 8 mm polyp in the ascending colon, removed with a cold snare. Resected and retrieved. - One 8 mm polyp at 40 cm proximal to the anus, removed using lift and cut and a hot snare. Resected and retrieved. - Internal hemorrhoids. - The examination was otherwise normal on direct and retroflexion views. 2Repeat colonoscopy in 3 years 3A) Ascending colon polyp, polypectomy: Tubular adenoma. B) Colon polyp at 40 cm, polypectomy: Tubular adenoma. 4Impression: There is no mammographic evidence of malignancy. A 1 year screening mammogram is recommended 5ACR BI-RADS CATEGORY 1: NEGATIVE There is no mammographic evidence of malignancy. A 1 year screening mammogram is recommended.(10/15/2022) 61. Posterior neck 2. Left neck 7No mammographic evidence of malignancy. 1 year screening mammogram recommended 81. Moderate improvement in aeration left lung base with mild residual. 2. Component of mild residual atelectatic and pleural effusion type change. 9Elevation left hemidiaphragm possibly with associated atelectatic change 101. No evidence fo pulmonary embolus 2. Small hiatal hernia with mild thickening of the distal esophageal wall 3. Consolidative infiltrate and atelectasis left lung base 11There is no mammographic evidence of malignancy. A one year screening is recommended. 12No acute process 13WNL-1 yr 14no malignancy. repeat 1 year [facility]a Jimenez at hospital [address] [place] [address] head on wooden beam - scalp laceration repaired with 9 tiny. 17WNL-1 yr 18normal LC 19WNL Vital Signs Most recent to oldest [Reference Range]: 1 Height 161 cm (04/19/24 9:34 AM) Patient Weight 109.6 kg (04/19/24 9:34 AM) Body Mass Index 42.28 kg/m2 (04/19/24 9:34 AM) Temperature [36.5-37.9 DegC] 36.5 DegC (04/19/24 9:34 AM) Heart Rate 84 bpm (04/19/24 9:34 AM) Respiratory Rate 18 br/min (04/19/24 9:34 AM) Blood Pressure 136/80mmHg (04/19/24 9:34 AM) Social History Social History Type Response Smoking Status Never smoked cigaret royal Sex Female Sex Representation Female (finding) FCM Outpt Note * MD Cecille, [place]: PERFORM Event Display: FCM Outpt Note Authored Date: [id number] Chief Complaint pre-op LT shoulder surgery 05/03/24. History of Present Illness 68-year-old female here for preop physical. Date of surgery:May 03, 2024 Surgeon : Dr. Miller Planned surgery: left total shoulder versusreserve total shoulder arthroplastysurgery [_] high risk (aortic, peripheral vascular) [x] intermediate risk (intraperitoneal, intrathoracic, CEA, head and neck, orthopedic, prostate) [_] low risk (endoscopic or superficial procedures, cataract surgery, breast surgery, ambulatory procedures) Planned anesthesia: general anaesthesia--surgery will be in the main OR at [facility]. Exercise tolerance is greater than 4 METs: Therapy pool , walking an hour every hour. No sob and chest pain. Other surgeries: Carpal tunnel,hysterectomy.Denies problem with anaesthesia Bleeding tendency: Denies family history of VTE. Denies issues with excessive bleeding after dental work or other surgical intervention. ?Blood clot right knee, 1993, after delivering 3rd child. No medication prescribed. Substance use: never smoke occasional glass of wine no illicit drug use. Prior anesthesia: Has not had any issues with anesthesia in the past. Revised Cardiac Risk Index: Score [0] [_] High Risk Surgery [_] Ischemic Heart Disease [_] History of CHF [_] History of cerebrovascular disease [_] Insulin therapy for DM [_] Pre-op Cr >2 Denies fever, headache, dizziness. Denies nasal congestion, ear pain Denies chest pain or shortness of breath Denies abdominal pain, nausea or vomiting, diarrhea or constipation Denies dysuria, frequency or urgency of urination Denies blood in the urine or stool Review of Systems see hpi Physical Exam Vitals & Measurements T:36.5C HR:84(Monitored) RR:18 BP:136/80 SpO2:98% HT:161cm WT:109.600kg(Dosing) WT:109.6kg BMI:42.28 PHQ2 Data(Data Documented on:04/19/2024 09:34) Emotional health assessment NEGATIVE General: alert and oriented, no acute distress Eye: PERRL, EOMI, normal conjunctiva HENT: normocephalic, TMs clear, normal hearing, moist oral mucosa, no pharyngeal erythema, no sinus tenderness Neck: supple, non-tender, no lymphadenopathy, no thyromegaly Resp: Lungs CTA, non-labored respirations, BS equal, symmetrical expansion CV: normal rate and rhythm, no murmur, no gallop GI: soft, non-tender, non-distended, normal bowel sounds, no organomegaly : no CVA tenderness MS: normal gait.LUE:Range of motiondecreasedtenderness to palpation on AC joint,tenderness over posterior and anterior supraspinatus. Sensoryand motor,intact Integumentary: warm, dry, pink, no cyanosis, intact, moist, no pallor, no rash Psychiatric: appropriate mood and affect, normal judgement, non-suicidal Assessment/Plan 1.Preop examination Patient has no history of ischemic heart disease, CHF, CVD, diabetes, EtOH/drug abuse, recent anticoagulant or antithrombotic use, or CKD. They report no history of undergoing a stress test, cardiac catheterization, or coronary revascularization. Patient is medically optimized to proceed with orth osurgical procedure as planned. Form completed, returned to patient, and faxed in office today. 2.Shoulder arthritis May take Tylenol as needed for pain 3.Hypertension Chronic. Stable,BP today is 136/80. Continue medications. Problem List/Past Medical History Ongoing Anxiety disorder Apnea, sleep Arthritis of left foot ASTHMA Benign essential HTN Bilateral hand numbness Cervicalgia CTS (carpal tunnel syndrome) DEPRESSION Dyspnea Ganglion cyst Hallux valgus of left foot Hammertoe of left foot Hand paresthesia History of hysterectomy Hot flash, menopausal Hypothyroidism Iliotibial band syndrome Left knee pain Left shoulder pain Moderate obstructive sleep apnea Osteopenia of left shoulder Pes anserinus bursitis of left knee Pes planus of left foot Restless leg syndrome Right hand pain Sinus tarsi syndrome of left foot Varicose veins of lower extremity Weight disorder Resolved Acute headache Acute sore throat Encounter for annual general medical examination without abnormal findings in adult Procedure/Surgical History Colonoscopy| Service Date: 08/26/2023Mammogram| Service Date: 10/16/2022Mammogram - screening| Service Date: 10/14/2021have biopsy| Service Date: 2Carpal tunnel release| Service Date: 08/30/2021Mammogram - screening| Service Date: 10/10/2020hest X-ray| Service Date: 07/27/2019ECG| Service Date: 07/06/2019Chest x-ray| Service Date: 07/06/2019CT angiography of chest with contrast| Service Date: 07/06/2019Mammogram| Service Date: 08/18/2018Chest X-ray| Service Date: 09/29/2017Mammogram - screening| Service Date: 06/17/2017Full sleep study| Service Date: 03/22/2016Emergen medical services| Service Date: 08/14/2015Mammogram| Service Date: 06/13/2015Mammogram - screening| Service Date: 06/12/2014mammorgram - wnl| Service Date: 06/10/2013vericose vein injections| Service Date: 08/02/2012venous doppler left| Service Date: 05/29/2012COLONOSCOPY| Service Date: 06/29/2007TAH --Ovaries left intact (DX: Fibroids)| Service Date: 07/30/2003Varicose Vein Stripping| Service Date: 06/29/1979 Medications albuterol(albuterol CFC free 90 mcg/inh MDI), 2 puff, inhaled, qid, PRN, 5 refills aspirin, 81 mg, PO, Daily cetirizine(ZyrTEC), PRN diclofenac topical(diclofenac 1% topical gel), 1 appl, topical, qid, PRN fluticasone(fluticasone CFC free 220 mcg/inh MDI), 2 puff, inhaled, bid hydroCHLOROthiazide(hydroCHLOROthiazide 25 mg oral tablet), See Instructions, 3 refills ibuprofen(Advil 200 mg oral tablet), 400 mg= 2 tab, PO, q6h, PRN inhalation accessory(inhaler spacer), See Instructions levothyroxine(levothyroxine 112 mcg (0.112 mg) oral tablet), 1 tab, PO, Daily lisinopril(lisinopril 20 mg oral tablet), See Instructions, 3 refills multivitamin(Multiple Vitamins oral capsule), 1 cap, PO, Daily omeprazole(omeprazole 40 mg oral delayed release capsule), 40 mg= 1 cap, PO, Daily, 3 refills predniSONE(predniSONE 20 mg oral tablet), 40 mg= 2 tab, PO, Daily sertraline(sertraline 100 mg oral tablet), 1 tab, PO, qhs triamcinolone topical(triamcinolone 0.5% topical cream), 1 appl, topical, tid Allergies Cefzilnausea amoxicillinhives codeinesevere nausea/codeine Social History Smoking Status Never smoked cigarettes Alcohol - Low Risk Use:Current Frequency:1-2 times per week Average drinks per episode in last year:1 Employment/School Status:Employed Description:[employer] Activity level:Moderate physical work Highest education:Some college Exercise Duration (average number of minutes):30 Times per week:5-6 times/week Exercise type:Walking Home/Environment Lives with:Spouse Nutrition/Health Type of diet:Calorie restricted Sexual - Low Risk Substance Abuse - Denies Substance Abuse Tobacco - Denies Tobacco Use Family History Alive and well: Sister, Sister, Daughter, Daughter and Son. Cancer: Father. Diabetes: Mother. Health Status Family Member(s) Family Member(s) Relationship: Mother, Name: Vida, Age: 34 Years, Cause: DM II Relationship: Father, Age: 60 Years, Cause: Meningitis, Lymphoma Immunizations Vaccine Date Status pneumococcal 20-valent conjugate vaccine 07/10/2023 Given Comments : Early/Late Reason: Clinic schedule influenza virus vaccine, inactivated 06/10/2023 Recorded zoster vaccine, inactivated 09/05/2022 Given zoster vaccine, inactivated 07/07/2022 Given influenza virus vaccine, inactivated 05/20/2022 Given influenza virus vaccine, inactivated 04/09/2021 Given influenza virus vaccine, inactivated 05/09/2020 Given influenza virus vaccine, inactivated 05/02/2019 Given influenza virus vaccine, inactivated 05/05/2018 Given influenza virus vaccine, inactivated 04/20/2017 Given influenza virus vaccine, inactivated 04/23/2016 Recorded Comments : [05/29/2016] [facility] tetanus/diphtheria/pertuss, acel (Tdap) 10/01/2015 Given influenza virus vaccine, inactivated 06/21/2015 Given influenza virus vaccine, inactivated 04/27/2014 Given influenza virus vaccine, inactivated 04/28/2013 Given influenza virus vaccine, H1N1 04/29/2011 Recorded tetanus/diphtheria/pertuss, acel (Tdap) 06/06/2005 Recorded measles/mumps/rubella virus vaccine 12/07/1994 Recorded Recommendations Health Maintenance Pending(in the next year) OverDue Adult Influenza Vaccine due12/27/23and every 1year Due Adult COVID-19 Vaccination due04/20/24Unknown Frequency Adult Social Determinants of Health Screening due04/20/24Unknown Frequency Satisfied(in the past 1 year) Satisfied Adult Influenza Vaccine on06/10/23.Satisfied by ALEX Lund Jenna Body Mass Index on04/19/24.Satisfied by KASEY Britt Natalie Breast Cancer Screening on10/20/23.Satisfied by MARLENY Malone Lynnae Hepatitis C Screening on07/09/23.Satisfied by Contributor_system, [id number] Lipid Screening on07/09/23.Satisfied by Contributor_system, [id number] Osteoporosis Screening on12/25/23.Satisfied by MARLENY Malone Lynnae Pneumococcal Vaccine Adults and Adolescents with Chronic Illness on07/10/23.Satisfied by KASEY Vilchis Sharon Pneumococcal Vaccine Older Adults on07/10/23.Satisfied by KASEY Vilchis Sharon Electronic Signature on File Electronically Reviewed/Signed by: Elena Oden MD Author Signature Dt/Tm:04/20/2024 12:58 AM Department of Family Medicine VS Patient Care team information Care Team Personnel Name: DO Ledezma Franklin J Position: Physician - Family Med Member Role: Lifetime Relationship Address: [address] [facility] [address] [place] [address] [place] Name: LYNN Wahl [place] Position: Physician Instructional Technologist Exempt - Vasc Surg Member Role: Lifetime Relationship Address: [address] [facility] [address] [place] [address] [place] Name: DO Jones Sameer Position: Resident Member Role: Lifetime Relationship Address: [address] [facility] [address] [place] [address] [place] Name: MD Oden [place] Position: Physician - Family Med Member Role: Primary Care Provider Address: [address] [place] [address], [place] [address] [place] Care Team Related Persons Name: PAUL RED Name: PAUL RED"
[2024-05-03] MEDS ORDERED: HYDROmorphone INJ 0.5 MG/0.5 ML SYR IV PRN (14:49)
[2024-05-03] MEDS ORDERED: MAGNESIUM HYDROXIDE SUSP 30 ML UDC PO PRN (14:49)
[2024-05-03] MEDS ORDERED: diphenhydrAMINE Capsule 25 MG CAP PO PRN (14:49)
[2024-05-03] MEDS ORDERED: METOCLOPRAMIDE HCL INJ 5 MG/ML 2 ML VIAL IV PRN (14:49)
[2024-05-03] MEDS ORDERED: bisacodyL 10 MG SUPP PR PRN (14:49)
[2024-05-03] MEDS ORDERED: NALOXONE HCL 0.4 MG/1 ML VIAL/CARP IV PRN (14:49)
[2024-05-03] MEDS ORDERED: CETIRIZINE HCL 10 MG TABLET PO PRN (14:49)
[2024-05-03] MEDS: Scopolamine CHECK PATCH PLACEMENT SCH (14:56)
[2024-05-03] MEDS: ALLERGY Noted to ORDERED Medication SCH (14:56)
[2024-05-03] MEDS: ceFAZolin 2,000 MG/15 ML IV PUSH IV ONE (14:58)
--- NOTE | 2024-05-03 14:59 | XRay Report ---
XR shoulder LT min 2V routine HISTORY: 68 years-old Female Post shoulder surgery COMPARISON: Chest radiograph 03/28/2024 TECHNIQUE: 3 views of the left shoulder FINDINGS: Left shoulder arthroplasty. Demineralized appearance of the bones. Moderate degeneration of the AC hi int. No acute fracture or unexpected opaque foreign body. IMPRESSION: Satisfactory alignment of the left shoulder arthroplasty. ACT 112: Negative or not required by law. The above report was generated using voice recognition software. It may contain grammatical, syntax o r spelling errors. Electronically signed by: Kg Salazar M.D. 05/03/2024 2:58 PM
--- NOTE | 2024-05-03 15:42 | Hospitalist Consultation ---
Date of Consultation May 03, 2024 Assessment & Plan (1) Osteoarthritis of left shoulder: S/p left shoulder arthroplasty 05/03 - nonhypoxic, VSS - Pain management, VTE PPx, and bowel regimen per orthopedic team - Ancef x 2 bags - pre-op H&H stable, renal function stable, EKG NSR - AM CBC and BMP - PT/OT to evaluate (2) Hypertension: stable, mildly elevated Given IV fluids postoperatively, likely contributing to hypertension Held home medications preoperatively Continue home hydrochlorothiazide and lisinopril 05/04 (3) Obstructive sleep apnea of adult: - continue with CPAP HS Plan Chronic stable diagnoses: Hypothyroidismcontinue home levothyroxine GERDcontinue PPI Depressioncontinue sertraline VTE ppx: TEDs Diet: heart healthy Code status: full Dispo: med/surg Supervising Physician Co-Signing Physician Notes I personally saw and examined the patient. I independently reviewed the labs, imaging, problem list, medication list, past medical history and family history. I verified all leslie points and agree with Philomena Mcgowan PA-C with the following exceptions and/or additions: 68 year old POD#0 left total shoulder arthroplasty. No acute concerns or questions from the patient O/E HS RRR, no murmurs, Chest CTAB, Abdo SNT, mild numbness in left 1st/2nd fingers, movement normal A/P VTE / Pain / bowel management per primary orthopedic team HTN - given curent BP and did not take her medications today will hold HCTZ in AM Otherwise as above History of Present Illness Reason for Consultation: medical management Requesting Physician: Dr. Miller Attending Physician: Jeff Miller MD History of Present Illness Patient is a 68-year-old female with a past medical history of AMANDA, hypertension, hypothyroidism, GERD, depression, and left shoulder osteoarthritis. She is seen today for a postoperative medical management consult. She had a left shoulder arthroplasty today 05/03. She is doing well postoperatively, denies pain, nausea, vomiting, dizziness, lightheadedness. She denies nicotine and illicit drug use, socially drinks alcohol. Denies history of previous VTE or clotting disorders, diabetes, and cancer. She states she seasonally has asthma and needs an inhaler as needed but is currently stable. She uses a CPAP at bedtime. She took her levothyroxine and sertraline this morning. She has not urinated or had a bowel movement postoperatively; she has not yet eaten, diet order placed. Allergies Allergy/AdvReac Type Severity Reaction Status Date / Time amoxicillin Allergy Severe Rash Verified 05/03/24 08:46 Penicillins Allergy Severe AMOX. Verified 05/03/24 08:46 HIVES Cephalosporins Allergy Unknown CEFZIL-"SIC Verified 05/03/24 08:46 K" codeine AdvReac Intermediate N/V Verified 05/03/24 08:46 DEHYDRATION Home Medications Medication Instructions Recorded Confirmed Type aspirin 81 mg tablet,delayed 81 mg PO QAM 07/06/19 05/03/24 History release (Adult Low Dose Aspirin) cetirizine 10 mg tablet (Zyrtec) 10 mg PO DAILY PRN Allergy Symptoms 07/06/19 05/03/24 History levothyroxine 112 mcg capsule 112 mcg PO QAM 07/06/19 05/03/24 History lisinopril 10 mg tablet 20 mg PO QAM 07/06/19 05/03/24 History multivitamin (Multiple Vitamins 1 tab PO QAM 07/06/19 05/03/24 History tablet) omeprazole 20 mg capsule,delayed 20 mg PO QAM 07/06/19 05/03/24 History release sertraline 100 mg tablet (Zoloft) 100 mg PO QAM 07/06/19 05/03/24 History hydrochlorothiazide 25 mg tablet 25 mg PO QAM 10/28/21 05/03/24 History Patient History Medical History History of venous thrombosis right leg qtez-ctckwa-wiwnbnmxazk-denies being advised to start anticoagul ation Hypothyroidism Depression Hypertension controlled, stable per pt History of COVID-19 07/05/21; headache, poor appetite. resolved Morbid obesity Osteoarthritis History of anxiety Acid reflux controlled, stable per pt Sleep apnea CPAP-compliant History of uterine leiomyoma History of gestational diabetes Surgical History History of carpal tunnel release of both wrists History of colonoscopy History of total abdominal hysterectomy History of ligation of vein bilat History of tonsillectomy and adenoidectomy Family History Other Cancer No family history of adverse response to anesthesia No significant family history Denies family history of Breast cancer Social History Smoking Status: Never smoker Second Hand Exposure: No; Do You Dip or Chew Tobacco: No; Tobacco Cessation Education Requested by Patient: No Hx Alcohol Use: Yes Alcohol type: wine Hx Substance Use: No Preferred Language: Frisian Communication Ability: Effective Digester Capper Required: No Beliefs That Will Affect Care: None Current Living Situation: Spouse Other Information That Helps Us Care for You: No Feels Safe at Home: Yes Safety Concerns: Feels Safe At This Time Assistive Devices: Glasses Review of Systems Review of Systems: see HPI Physical Exam Physical Exam: The patient is awake, alert and oriented 3, well developed and well nourished, normocephalic and atraumatic, in no acute distress. Non-toxic appearing. HEENT- EOMI, mucous membranes moist. Hearing grossly intact. Heart-normal S1 and S2. No murmurs, rubs or gallops. Lungs-clear bilaterally, no respiratory distress, no accessory muscle use. Abdomen-normal bowel sounds and soft. No ascites noted. Non-tender. Extremities- no clubbing, cyanosis, or edema. Left shoulder sling and surgical bandages in place. Rheumatologic-normal range of motion. Psychiatric-normal affect. Results & Data Results & Data Vital Signs (Past 12 Hours) Vital Signs Temp Pulse Pulse Resp BP Pulse Ox O2 Del Method 05/03/24 15:29 Room Air 05/03/24 15:13 36.7 C 76 16 136/84 97 Room Air 05/03/24 14:45 37 C 80 16 130/83 95 Room Air 05/03/24 14:29 81 12 129/83 96 Room Air 05/03/24 14:15 80 12 130/72 94 Room Air 05/03/24 14:00 37.2 C 78 12 124/67 94 Room Air 05/03/24 13:50 78 17 121/75 93 Room Air 05/03/24 13:40 78 10 L 126/84 93 Room Air 05/03/24 13:30 80 15 134/94 100 Oxymask 05/03/24 13:24 36.0 C L 74 16 131/97 99 Oxymask 05/03/24 08:48 36.9 C 78 20 148/86 H 96 Room Air O2 Flow Rate 05/03/24 15:29 05/03/24 15:13 05/03/24 14:45 05/03/24 14:29 05/03/24 14:15 05/03/24 14:00 05/03/24 13:50 05/03/24 13:40 05/03/24 13:30 4 05/03/24 13:24 6 05/03/24 08:48 PG Care Time/CCT Total # of Minutes Spent Total Time Spent with Patient: Total time spent is greater than 50% in coordination of care (as documented) at patient's floor/unit and/or counseling patient: Coding Level of Care Code 56457 IN/OBS CONSULT LVL 3,45M Diagnoses Osteoarthritis of left shoulder M19.012 Hypertension I10 Obstructive sleep apnea of adult G47.33
[2024-05-03] MEDS: ASCORBIC ACID 500 MG TAB PO SCH (17:15)
[2024-05-03] MEDS: FERROUS GLUCONATE 324 MG TAB PO SCH (17:15)
[2024-05-03] MEDS: PANTOprazole 40 MG TAB PO STA (20:58)
[2024-05-03] MEDS: DOCUSATE SODIUM 100 MG CAP PO SCH (21:13)
[2024-05-03] MEDS: SENNA 8.6 MG TAB PO SCH (21:13)
[2024-05-03] MEDS: ASPIRIN 81 MG ECTAB PO SCH (21:14)
[2024-05-04] MEDS: LEVOTHYROXINE SODIUM 112 MCG TABLET PO SCH (05:53)
[2024-05-04 06:20] LABS: Basophils # (auto) 0.03 K/uL (0.00-0.20); Basophils % (auto) 0.5 %; Eosinophils # (auto) 0.14 K/uL (0.00-0.50); Eosinophils % (auto) 2.2 %; Hematocrit (blood only) 31.5 % (37.0-47.0); Hemoglobin 10.8 g/dl (12.0-16.0); Immature Granulocytes # (auto) 0.04 K/uL (0.01-0.20); Immature Granulocytes % (auto) 0.6 %; Lymphocytes # (auto) 0.89 K/uL (1.20-3.40); Lymphocytes % (auto) 13.9 %; Mean Corpuscular Hgb Conc 34.3 g/dL (32.0-36.0); Mean Corpuscular Volume 93.5 fL (80.0-100.0); Mean Platelet Volume 8.5 fL (9.4-12.4); Monocytes # (auto) 0.64 K/uL (0.11-0.59); Neutrophils # (auto) 4.65 K/uL (1.40-6.50); Neutrophils % (auto) 72.8 %; Platelet Count 223 K/uL (130-400); RDW Coefficient of Variation 13.4 % (11.5-14.5); RDW Standard Deviation 45.7 fL (36.4-46.3); Red Blood Count 3.37 M/uL (4.20-5.40); White Blood Count 6.39 K/ul (4.8-10.8)
[2024-05-04 06:39] LABS: BUN Creatinine Ratio 17.2 (10-20); Creatinine Clr Calc Pharmacy 115.2 ml/min; Potassium 3.9 mmol/L (3.5-5.1)
[2024-05-04 07:07] VITALS: BP 109/73; PULSE 80; RESP 18; TEMP 98.2; O2SAT 97
[2024-05-04] MEDS: oxyCODONE HCL IR 5 MG TAB (IMMEDIATE RELEASE) PO PRN (07:54)
[2024-05-04] MEDS: MULTIVITAMIN TAB PO SCH (07:55)
[2024-05-04] MEDS: lisinopril 20 MG TAB PO SCH (07:55)
[2024-05-04] MEDS: PANTOprazole 40 MG TAB PO SCH (07:55)
[2024-05-04] MEDS: SERTRALINE HCL 100 MG TABLET PO SCH (07:55)
[2024-05-04] MEDS ORDERED: hydroCHLOROthiazide 25 MG TAB PO SCH (09:00)
[2024-05-04] MEDS ORDERED: NON-FORMULARY MEDICATION (Multivitamin [Multiple Vitamins] Tablet) PO SCH (09:00)
--- NOTE | 2024-05-04 09:06 | Orthopedic Progress Note ---
Date of Service May 04, 2024 Assessment & Plan (1) Status post replacement of left shoulder joint: Plan: Patient doing very well. She endorses a little bit of tingling sensation in several of her fingers on the left side likely secondary to the block wearing off. Pain is well-controlled. Vitals stable. Hemoglobin 10.8 attributable to recent surgery. No leukocytosis. Kidney function stable. No significant electrolyte disturbances. She did well with physical therapy. Has home PT scheduled. Postop shoulder x-ray with expected findings. Her dressing is dry and intact. Discussed with Dr. Miller. Will leave this in place as she has a postop appointment scheduled in our office tomorrow for dressing change. Patient would like to go home today. She will continue to utilize the shoulder immobilizer x 4 weeks. Nonweightbearing left upper extremity. Pain control with Tylenol and oxycodone. Prescription for oxycodone sent to pharmacy. PDMP reviewed and no concerns were identified. Ice. DVT prophylaxis with aspirin 81 mg twice daily over the next 6 weeks. Iron and vitamin C supplementation for the next 2 weeks. Reasons to contact the office were reviewed. All questions were answered. Admission and Anticipated Discharge Date Admission Date: May 03, 2024 Soctt Leigh is a 68 year old female post op day 1 left shoulder total arthroplasty. She is seen in room today standing and working with physical therapy. She feels great, has a little bit of aching pain in her armpit area and has a little bit of tingling in her fingers, which is improving from yesterday. She thinks the block is still wearing off. She received a dose of oxycodone this morning in preparation for physical therapy. She denies any chest pain or shortness of breath. No fevers or chills. She feels that she is ready to go home today. She is scheduled with outpatient appointment in our office tomorrow for dressing change. Physical Exam Constitutional: Pleasant, standing with physical therapy. In no apparent distress. Respiratory: Lungs clear to auscultation bilaterally. Cardiovascular: Regular rate and rhythm. No murmurs rubs or gallops. Radial pulse on the left side 2+. Musculoskeletal: Left upper extremity: Inspection of the left shoulder reveals an intact dressing which is dry with no saturation. Sling in place. 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 Neurologic: Altered sensation to light touch in left thumb and index finger Results & Data Vital Signs (Past 12 Hours) Vital Signs Temp Pulse Resp BP Pulse Ox O2 Del Method 05/04/24 08:10 Room Air 05/04/24 07:06 98.2 F 80 18 109/73 97 Room Air 05/04/24 04:33 98.1 F 86 15 106/72 94 Room Air 05/04/24 00:38 98.1 F 81 15 113/74 93 Room Air 05/03/24 21:31 97.7 F 79 16 117/76 94 Room Air 05/03/24 21:13 Room Air Laboratory Results Shoulder X-Ray 05/03/24 13:39 XR shoulder LT min 2V routine HISTORY: 68 years-old Female Post shoulder surgery COMPARISON: Chest radiograph 03/28/2024 TECHNIQUE: 3 views of the left shoulder FINDINGS: Left shoulder arthroplasty. Demineralized appearance of the bones. Moderate degeneration of the AC joint. No acute fracture or unexpected opaque foreign body. IMPRESSION: Satisfactory alignment of the left shoulder arthroplasty. ACT 112: Negative or not required by law. The above report was generated using voice recognition software. It may contain grammatical, syntax or spelling errors. Electronically signed by: Kg Salazar M.D. 05/03/2024 2:58 PM Diagnostic Findings Laboratory Results WBC 6.39 K/ul (4.8-10.8) 05/04/24 05:49 RBC 3.37 M/uL (4.20-5.40) L 05/04/24 05:49 Hgb 10.8 g/dl (12.0-16.0) L 05/04/24 05:49 Hct 31.5 % (37.0-47.0) L 05/04/24 05:49 MCV 93.5 fL (80.0-100.0) 05/04/24 05:49 MCH 32.0 pg (25.0-34.0) 05/04/24 05:49 MCHC 34.3 g/dL (32.0-36.0) 05/04/24 05:49 RDW Std Deviation 45.7 fL (36.4-46.3) 05/04/24 05:49 RDW Coeff of Audelia 13.4 % (11.5-14.5) 05/04/24 05:49 Plt Count 223 K/uL (130-400) 05/04/24 05:49 MPV 8.5 fL (9.4-12.4) L 05/04/24 05:49 Immature Gran % (Auto) 0.6 % 05/04/24 05:49 Neut % (Auto) 72.8 % 05/04/24 05:49 Lymph % (Auto) 13.9 % 05/04/24 05:49 Turner % (Auto) 10.0 % 05/04/24 05:49 Eos % (Auto) 2.2 % 05/04/24 05:49 Baso % (Auto) 0.5 % 05/04/24 05:49 Neut # (Auto) 4.65 K/uL (1.40-6.50) 05/04/24 05:49 Lymph # (Auto) 0.89 K/uL (1.20-3.40) L 05/04/24 05:49 Turner # (Auto) 0.64 K/uL (0.11-0.59) H 05/04/24 05:49 Eos # (Auto) 0.14 K/uL (0.00-0.50) 05/04/24 05:49 Baso # (Auto) 0.03 K/uL (0.00-0.20) 05/04/24 05:49 Immature Gran # (Auto) 0.04 K/uL (0.01-0.20) 05/04/24 05:49 Sodium 135 mmol/L (136-145) L 05/04/24 05:49 Potassium 3.9 mmol/L (3.5-5.1) 05/04/24 05:49 Chloride 100 mmol/L (98-107) 05/04/24 05:49 Carbon Dioxide 29 mmol/L (21-32) 05/04/24 05:49 Anion Gap 6 (3-11) 05/04/24 05:49 BUN 10 mg/dl (6-23) 05/04/24 05:49 Creatinine 0.58 mg/dl (0.6-1.2) L 05/04/24 05:49 Est Cr Clr Drug Dosing 115.2 ml/min 05/04/24 05:49 eGFR 99.74 05/04/24 05:49 BUN/Creatinine Ratio 17.2 (10-20) 05/04/24 05:49 Glucose 110 mg/dl (70-99(Fasting)) H 05/04/24 05:49 Calcium 9.0 mg/dl (8.6-10.3) 05/04/24 05:49
--- NOTE | 2024-05-04 12:13 | Discharge Summary ---
Date of Service May 04, 2024 Principal Diagnosis Osteoarthritis left shoulder, S/P left total arthroplasty Discharge Exam Constitutional: Pleasant, standing with physical therapy. In no apparent distress. Respiratory: Lungs clear to auscultation bilaterally. Cardiovascular: Regular rate and rhythm. No murmurs rubs or gallops. Radial pulse on the left side 2+. Musculoskeletal: Left upper extremity: Inspection of the left shoulder reveals an intact dressing which is dry with no saturation. Sling in place. Wrist extension, resisted finger abduction, thumb extension, and clean up supervisor strength all 5/5. Neurologic: Altered sensation to light touch in left thumb and index finger Discharge Data Allergies Allergy/AdvReac Type Severity Reaction Status Date / Time amoxicillin Allergy Severe Rash Verified 05/03/24 08:46 Penicillins Allergy Severe AMOX. Verified 05/03/24 08:46 HIVES Cephalosporins Allergy Unknown CEFZIL-"SIC Verified 05/03/24 08:46 K" codeine AdvReac Intermediate N/V Verified 05/03/24 08:46 DEHYDRATION Consultations 05/03/24 14:49 Consult Hospitalist Routine Procedures Performed Operation Date: 05/03/24 10:00 Actual Procedures p Left Total Shoulder Arthroplasty(Left) - Jeff Miller MD Hospital Course (1) Status post replacement of left shoulder joint: Patient underwent an uneventful left shoulder total arthroplasty performed on 05/03/[address] Miller. Her pain was well controlled and she did not have any complications. She was happy to be discharged today. She was also evaluated by Dr. Miller prior to discharge. Her postop labs showed minimal anemia expected after surgery. Postop x-ray showed expected findings. Vitals remained stable. She has home health PT scheduled. Prescription for pain medication was sent to the pharmacy for oxycodone. She will also use Tylenol. Ice. She will remain in the sling for 4 weeks. DVT prophylaxis with aspirin 81 mg twice daily over the next 6 weeks. Iron and vitamin C supplementation over the next 2 weeks. Dressing change will be performed tomorrow at her scheduled office appointment. Reasons to contact the office were reviewed. All questions were answered. Total Time Total Time Spent Total Time Spent (In Minutes): 25 minutes Discharge Plan Discharge Items Patient Disposition: Home - Self-Care Reason For Visit: POST OP LTSA Discharge Diagnosis: Osteoarthritis left shoulder, S/P left total arthroplasty Condition on Discharge: Good Activity: Per Instructions section Non-emergency contact: Surgeon Call non-emergency contact if: your symptoms worsen, your pain is not controlled, you have a fever and your wound has increased drainage Follow-up/Referrals: [facility],Home Healthcare [Non-Staff] - [facility],Referral Center [Non-Staff] - Arlene Song PA-C [Physician Multiple Drum Sander Helper] - 05/05/24 10:15 am Elena Oden MD [Primary Care Provider] - Diet: Heart Healthy Addtl Attending Provider Instructions: POST OPERATIVE DISCHARGE INSTRUCTIONS Pain Control Please take the follow medications for pain control, as well as icing and elevating your operative extremity. Pain after surgery is to be expected. We may not be able to take away all of your pain, but the goal is to make your pain man ageable - Extra strength Tylenol 1,000mg (2 tabs) every 8 hours - Oxycodone 5-10mg (1-2tabs) every 4-6 hours as needed DVT Prophylaxis With any surgery, you are at increased risk for blood clots. Please take the follow measures to prevent blood clots and read the warning signs to watch for. Please take the follow anticoagulant: Aspirin 81mg twice a day for 6 weeks If you were given NATALI compression stockings, these are to be worn on both legs for 18-20 hours daily for 2 weeks, or for 3 weeks for any lower extremity surgery. Warning signs: Calf pain, lower extremity swelling, numbness/tingling, skin discoloration, increased pain, shortness of breath, chest pain. Please contact our office if you experience any of these symptoms or call 911 if you are having trouble breathing. Ice Ice your operative site at least 5 times a day for 15-30 minutes at a time, for the first three days, then as needed. This will help to reduce swelling and pain. Make sure you have a thin cloth between the ice or cooling unit and your skin to prevent worrell bite. This is especially important if you received a nerve block. Diet/Nausea/Vomiting Start by drinking clear liquids and eating crackers. If you can tolerate this, then you may resume your normal diet. If you feel nauseated or vomit, take Zofran/ondansetron (if prescribed). Please call our office if you have intractable nausea or vomiting, or, if after hours, you may go to the Emergency Room for help. Surgical Dressing Please leave on any dressing until you are seen by either PT or PA for your post-operative appointment, unless you are otherwise instructed. If there are any issues with your dressing please give our office a call. Weight bearing, Range of Motion, Activity You will be non weight bearing as tolerated on your operative site. Sling for 4 weeks. Physical therapy You will do your rehab for the first two weeks with home health. Then you will begin outpatient physical therapy. It is very important you follow your rehab protocol and do your exercises as instructed by your provider and physical therapist. Wound care and showering We will inspect your wound at your first post-operative visit. It is normal to see some dried blood on the dressing. Do not remove your dressing, paper strips or sutures yourself unless otherwise instructed. Showering is allowed post op day 3. Do not scrub or remove any dressings, unless you are otherwise instructed. Once your dressing is changed in the office to the water-resistant dressing. You can shower with this on as long as all the edges are in tact. To promote wound healing, we recommend taking a multi-vitamin, or taking 500mg Vitamin C supplement twice a day for two weeks and 325mg Iron supplement twice a day for two weeks. This is especially important if you had a total joint replacement. Constipation Constipation is a common side effect of narcotic pain medication, dehydration after surgery and iron supplement (if you were instructed to begin that after surgery). We recommend purchasing an odzl-bld-iupwnyi laxative such as Milk of Magnesia, Colace, Dulcolax, Miralax or Senna from a local pharmacy, and taking it as instructed. Stay hydrated and you may increase your fiber in your diet as well. Call our clinic if any questions. Driving You may not drive while taking narcotic pain medication or while in a cast, splint, sling or brace. Driving will be discussed at your first post op appointment Return to Work Your return to work depends on what surgery was done and what type of work you do. Please bring any paperwork your employer needs completed to your first post-operative visit. Also, bring a description of your job duties, as this helps us to understand what risks you may face at work. Travel Avoid long distance travel (greater than 1 hour) in airplanes and cars for the first 6 weeks after surgery. Follow-up Please attend your post operative appointments as scheduled. At these appointments, we may do dressing change and remove any sutures/tiny/Zip-line 10-14 days after your surgery. If you do not know your post operative appointment dates or times please call the office at [phone] When to call the office It is normal to have swelling and bruising in the limb that was operated on. This will improve with time. It is also normal to have fevers for the first 2 days after surgery. Reasons you should call your doctor include: Uncontrolled pain; Nausea, vomiting, or constipation that does not improve with medication; Fevers over 101.5, chills, sweats; Drainage or bleeding from the wound; Foul odor; Spreading areas of redness; calf pain or swelling, shortness of breath, chest pain; Any other concerns You may call the office at [phone]. If it is a medical emergency please call 911. Pending Studies at Discharge: Yes Studies:: Bone Stand-Alone Forms: My [facility] [place], Smoking Cessation Medications and DC Order Prescriptions: New aspirin 81 mg Tablet,Delayed Release (Dr/Ec) 81 mg PO BID Qty: 30 0RF ascorbic acid (vitamin C) [Vitamin C] 500 mg Tablet 500 mg PO BIDM Qty: 30 0RF oxycodone 5 mg Tablet 5 - 10 mg PO Q4H PRN (Reason: pain) Qty: 18 0RF Continued levothyroxine 112 mcg capsule 112 mcg PO QAM lisinopril 10 mg tablet 20 mg PO QAM omeprazole 20 mg capsule,delayed release(DR/EC) 20 mg PO QAM sertraline [Zoloft] 100 mg tablet 100 mg PO QAM cetirizine [Zyrtec] 10 mg tablet 10 mg PO DAILY PRN (Reason: Allergy Symptoms) multivitamin [Multiple Vitamins] Tablet 1 tab PO QAM hydrochlorothiazide 25 mg Tablet 25 mg PO QAM Held aspirin [Adult Low Dose Aspirin] 81 mg tablet,delayed release (DR/EC) 81 mg PO QAM Hold Instructions: Resume on 06/15/24. Discharge Orders: Discharge Order (Routine); Ordered 05/04/24 Ordered By: Jeff Miller Admission Data Admit Date/Time: 05/03/24 13:39 Attending Provider: Jeff Miller Admit Provider: Jeff Miller Primary Care Provider: Elena Oden Other Providers: Richard Fernandez; [facility],Referral Center; [facility] Other Interventions: Discharge Summary Assessment (RN) Last Done: 05/04/24 10:11
== END 2024-05-04 12:26 | disposition home health service (06) ==
LOC: ASU 07:55 → 3E 07:55